=== PATIENT | male | born 1955 | race Caucasian/White ===

== ENCOUNTER → 2017-06-28 | Outpatient (CLI) | payer MEDICAID ==
--- NOTE | 2017-06-28 16:43 | RADIOLOGY REPORT (SQ) ---
EXAM DESCRIPTION: KUB COMPLETED DATE/TIME: 06/28/2017 4:34 pm REASON FOR STUDY: OTHER MICROSCOPIC HEMATURIA R31.29 OTHER MICROSCOPIC HEMATURIA COMPARISON: 11/14/2009 NUMBER OF VIEWS: One view. TECHNIQUE: Supine radiographic image of the abdomen acquired. LIMITATIONS: None. FINDINGS: BOWEL GAS PATTERN: Normal bowel gas pattern. No dilated loops. CALCIFICATIONS: The renal shadows are partially obscured by overlying bowel gas. SOFT TISSUES: No gross mass or suggestion of organomegaly. HARDWARE: None in the abdomen. BONES: The osseous structures are stable in appearance. OTHER: No other significant finding. IMPRESSION: 1 The gas pattern is nonspecific. 2 The renal shadows are partially obscured by overlying bowel gas. TECHNICAL DOCUMENTATION: JOB ID: [id number] [employer]- All Rights Reserved Reading location - IP/workstation name: [email or web address]
== END ==
LOC: OD 16:20
PROVIDERS: ATTEND Urology
DX: R31.29 Other microscopic hematuria (principal)
CPT/HCPCS: 74018